=== PATIENT | male | born 1975 | race Caucasian/White ===

== ENCOUNTER 2017-11-13 14:25 | Emergency (ER) | payer MEDICAID, OTHER, SELFPAY ==
[2017-11-13 14:26] VITALS: BP 112/81; PULSE 116; RESP 16; TEMP 36.2; O2SAT 97; BMI 25.1
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
[2017-11-13] MEDS: Morphine 4 MG/ML Syringe IM (15:52)
[2017-11-13] MEDS: Ondansetron 4 MG/2 ML Vial IM (15:53)
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
[2017-11-13 17:11] VITALS: BP 118/70; PULSE 98; RESP 14; O2SAT 99
== END 2017-11-13 17:13 | disposition home or self-care (01) ==
PROVIDERS: Emergency Provider Emergency Medicine
DX: S09.90XA Unspecified injury of head, initial encounter (principal); S79.911A Unspecified injury of right hip, initial encounter; S49.91XA Unspecified injury of right shoulder and upper arm, initial encounter; S69.92XA Unspecified injury of left wrist, hand and finger(s), initial encounter; Y04.2XXA Assault by strike against or bumped into by another person, initial encounter; Y93.9 Activity, unspecified; Y92.89 Other specified places as the place of occurrence of the external cause; Y99.9 Unspecified external cause status; M79.1 Myalgia; Z72.0 Tobacco use; K21.9 Gastro-esophageal reflux disease without esophagitis
CPT/HCPCS: 70450; 71046; 72125; 73030; 73110; 96372; 99283; J2405

== ENCOUNTER 2017-11-29 19:05 | Emergency (ER) | payer MEDICAID, SELFPAY ==
[2017-11-29 19:06] VITALS: BP 117/79; PULSE 96; RESP 28; TEMP 36.2; BMI 27.3
[2017-11-29 20:08] LABS: Color, Urine Yellow (Yellow); Glucose, Dipstick Normal (Normal); Ketone-Dipstick Negative (Negative); Leukocyte Esterase-Dipstick 25 /ul (Negative); Nitrite-Dipstick Negative (Negative); Occult Blood-Urine 150 /ul (Negative); Protein-Dipstick 15 mg/dl (Negative); Urine Bilirubin Dipstick Negative (Negative); Urine Clarity Clear (Clear); Urine Urobilinogen Normal (Normal)
[2017-11-29 20:19] LABS: Red Blood Cells-Urine 10-25 SEEN /hpf (0-5); Squamous Epithelial Cells - UA 0-5 SEEN /hpf (0-5); White Blood Cells 0-5 SEEN /hpf (0-5)
[2017-11-29 20:20] LABS: Bacteria RARE /hpf (None Seen); Mucous, Urine 2+ /hpf (<or=2+)
[2017-11-29] MEDS: Ondansetron 4 MG/2 ML Vial IV (20:31)
[2017-11-29] MEDS: Morphine 4 MG/ML Syringe IV (20:32)
[2017-11-29] MEDS: Ketorolac 30 MG/ML Syringe IV (20:34)
[2017-11-29] MEDS: 0.9% Normal Saline 1,000 ML 999 ML IV (20:34)
[2017-11-29 21:13] LABS: Anion Gap 5 (5-15); BUN 14 mg/dL (7-18); BUN/Creat Ratio 10.1 RATIO (10-20); Calcium,Total 8.6 mg/dL (8.5-10.1); Chloride 107 mmol/L (98-107); Creatinine, Serum 1.38 mg/dL (0.70-1.30); EST Glomerular Filtration Rate 60 mL/min (>60); Est Glom Filt Rate - Afr Amer 72 mL/min (>60); Estimated Creatinine Clearance 69.02 ml/min; Glucose 129 mg/dL (74-106); Sodium Level 140 mmol/L (136-145)
[2017-11-29 21:18] LABS: Absolute Lymphocyte Count 3.66 X10^3/ul (0.83-4.51); Absolute Neutrophil Count 10.4 X10^3/uL (2.0-7.7); Basophil# 0.06 X10^3/uL; Basophil% 0.4 % (0-1); Eosinophil# 0.24 X10^3/uL; Eosinophils% 1.5 % (0-5); Hematocrit 41.9 % (40-54); Hemoglobin 13.7 g/dl (13.0-16.5); Lymphocyte # 3.66 X10^3/ul (4.0); Lymphocyte % 23.5 % (19-41); Mean Corp Hgb Conc 32.7 g/gl (32-36); Mean Corpuscular Hgb 29.5 pg (27.0-32.0); Mean Corpuscular Volume 90.1 fL (80-94); Mean Platelet Vol. 10.5 fl (6.2-12.0); Monocyte% 7.7 % (0-10); Neutrophil # 10.35 X10^3/uL (2.7-7.7); Neutrophil % 66.5 % (47-70); POSITIVE COUNT NO; POSITIVE DIFFERENTIAL NO; POSITIVE MORPHOLOGY NO; Platelet Count 322 K/mm3 (150-450); RBC Distribution Width CV 13.7 % (11.6-14.6); RBC Distribution Width SD 44.8 fl (35.1-43.9); Red Blood Count 4.65 M/mm3 (4.6-6.2); White Blood Count 15.6 K/mm3 (4.4-11.0)
--- NOTE | 2017-11-29 21:28 | NURSING ---
[facility] CALLED AT [address] IN ABOUT 30 MINUTES
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
--- NOTE | 2017-11-29 21:39 | ED.DEP ---
ED Disposition - Plan for ED Patient: Chief Complaint: Flank Pain Instructions: ED Stone Renal W Colic Prescriptions: Oxycodone HCl/Acetaminophen [Percocet 5/325] 1 tab PO Q6H PRN PRN 3 Days #12 tab PRN Reason: Pain Tamsulosin HCl [Flomax] 0.4 mg PO DAILY #7 cap Ciprofloxacin [Cipro] 500 mg PO BID #14 tab Referrals: [facility] [Primary Care Provider] - Carmelo Foley MD [STAFF PHYSICIAN] -
[2017-11-29 22:17] VITALS: BP 109/72; PULSE 64; RESP 20; O2SAT 97
[2017-11-29] MEDS: HYDROcodone Bitartrate/Apap 5/325 Tablet PO (22:28)
== END 2017-11-29 22:30 | disposition home or self-care (01) ==
LOC: ED 20:36
PROVIDERS: Emergency Provider Emergency Medicine
DX: N13.2 Hydronephrosis with renal and ureteral calculous obstruction (principal); Z72.0 Tobacco use
CPT/HCPCS: 74176; 80048; 81001; 85025; 96361; 96374; 96375; 99284; J7030; A4216